=== PATIENT | female | born 1975 | race Hispanic/Latino ===

== ENCOUNTER 2020-04-28 06:30 | Day surgery (SDC) | payer OTHER ==
[2020-04-23 11:00] LABS: BASOPHILS % (AUTO) 0.4 % (0.0-5.0); EOSINOPHILS % (AUTO) 1.5 % (0.0-8.0); LYMPHOCYTES % (AUTO) 29.3 % (21.0-51.0); MEAN CORPUSCULAR HEMOGLOBIN 29.8 pg (27.0-33.0); MEAN CORPUSCULAR HGB CONC 32.6 g/dL (32.0-36.0); MEAN CORPUSCULAR VOLUME 91.3 fL (79-99); MONOCYTES % (AUTO) 5.4 % (3.0-13.0); NEUTROPHILS % (AUTO) 62.9 % (40.0-77.0); PLATELET COUNT (AUTO) 269 K/uL (130-400); RED BLOOD CELL COUNT(AUTO) 4.16 MIL/uL (4.00-5.50); RED CELL DISTRIBUTION WIDTH 13.4 % (11.0-15.5); WHITE BLOOD COUNT (AUTO) 10.1 K/uL (4.8-10.8)
[2020-04-23 11:26] LABS: ALBUMIN 3.7 g/dL (3.5-5.0); BILIRUBIN,TOTAL 0.3 mg/dL (0.2-1.0); CREATININE 0.6 mg/dL (0.5-1.5); POTASSIUM 4.3 mmol/L (3.5-5.1); TOTAL PROTEIN, SERUM 7.6 g/dL (6.0-8.3)
[2020-04-23 11:59] LABS: INR 0.95 (0.85-1.15); PARTIAL THROMBOPLASTIN TIME 33.4 SEC (26.3-35.5); PROTHROMBIN TIME 10.3 SEC (9.6-11.6)
[2020-04-27 12:43] VITALS: BP 142/73
[2020-04-27] MEDS: CEFAZOLIN SODIUM 1 GM VIAL IVP SCH (13:00)
[~2020-04-28] VITALS: Ht 154.9 cm; Wt 111.6 kg
[2020-04-28] VITALS (16 sets, daily range): BP systolic 102–130; BP diastolic 54–74
[~2020-04-28 06:30] MED LIST: FLUT1DIS4 IH; LISI-617 PO; OMEGA 3 PO
[2020-04-28] MEDS ORDERED: LACTATED RINGERS 1000ML 1,000 ML IV ONE (07:21)
[2020-04-28] MEDS ORDERED: BUPIVACAINE/PF 0.5% 30ML VIAL ONE (07:58)
[2020-04-28] MEDS ORDERED: ONDANSETRON HCL 4 MG/2 ML VIAL ONE ×2 (07:59→11:16)
[2020-04-28] MEDS ORDERED: NEOSTIGMINE 5MG/5ML SYR IV ONE (07:59)
[2020-04-28] MEDS ORDERED: GLYCOPYRROLATE 1 MG/5 ML SYRINGE ONE (07:59)
[2020-04-28] MEDS ORDERED: PROPOFOL 10 MG/ML 20ML VIAL IV ONE (07:59)
[2020-04-28] MEDS ORDERED: LIDOCAINE PF 2% 5ML ABBOJECT ONE (07:59)
[2020-04-28] MEDS ORDERED: DEXAMETHASONE SOD PHOSPHATE 10MG/ML 1ML VIAL ONE (07:59)
[2020-04-28] MEDS ORDERED: SUCCINYLCHOLINE 200MG/10ML SYR ONE (07:59)
[2020-04-28] MEDS ORDERED: FENTANYL CITRATE PF 50 MCG/1 ML 2ML VIAL ONE ×2 (08:00→09:33)
[2020-04-28] MEDS ORDERED: MIDAZOLAM HCL 1 MG/ML 2ML VIAL ONE (08:00)
[2020-04-28] MEDS ORDERED: ROCURONIUM 10MG/1ML SYR 10 MG/ML ML ONE (08:00)
[2020-04-28] MEDS ORDERED: MEPERIDINE-PF 25 MG/ML SYG ONE ×3 (08:14→10:35)
[2020-04-28] MEDS: CEFAZOLIN SODIUM 1 GM VIAL IVP SCH (08:45)
[2020-04-28] MEDS ORDERED: EPHEDRINE SULFATE 50 MG/ML AMPULE ONE (09:08)
[2020-04-28] MEDS ORDERED: ESMOLOL HCL 10 MG/ML 10 ML VIAL ONE (09:16)
--- NOTE | 2020-04-28 11:10 | NUR ---
PATIENT ARRIVED TO DAY PATIENT VIA STRETCHER BY MIKE HEATH. PATIENT AWAKE, DROWSY, ORIENTED. RESPONDS TO VERBAL COMMANDS. INCISIONS X 3 TO ABDOMEN, WELL APPROXIMATED WITH DERMABOND. NO BLEEDING NO DRAINAGE NOTED. PATIENT C/O NAUSEA. 1120 ADMINISTERED ZOFRAN IV PUSH, WILL CONTINUE TO MONITOR.
== END 2020-04-28 11:35 | disposition home or self-care (01) ==
LOC: DAH 06:30
PROVIDERS: ATTEND Student in an Organized Health Care Education/Training Program
DX: K80.10 Calculus of gallbladder with chronic cholecystitis without obstruction (principal); J45.909 Unspecified asthma, uncomplicated; I10 Essential (primary) hypertension; Z90.710 Acquired absence of both cervix and uterus; K21.9 Gastro-esophageal reflux disease without esophagitis; E66.01 Morbid (severe) obesity due to excess calories; E78.5 Hyperlipidemia, unspecified; Z20.828 Contact with and (suspected) exposure to other viral communicable diseases; Z79.01 Long term (current) use of anticoagulants; Z79.899 Other long term (current) drug therapy
CPT/HCPCS: 47562; S2900; 36415; 80053; 85025; 85610; 85730; J0330; J0690; J1100; J2001; J2175; J2250; J2405; J2704; J2710; J3010; J3490; J7030; J7120; U0003